=== PATIENT | female | born 1945 | race Two or more races ===

== ENCOUNTER 2024-07-14 13:10 | Outpatient (OUT) | payer MEDICARE, SELFPAY ==
--- NOTE | 2024-07-14 13:27 | FL_ITS ---
The [address] [address] Patient Name: KYREE JIMENEZ MRN: [id number] date: 1945 Sex: F Assigned Patient Location: [place] Current Patient Location: [place] Accession/Order Number: [id number] Exam Date: 07/14/2024 13:35 Report Date: 07/14/2024 16:55 At the request of: FRANCISCA KHAN Procedure: FL modified barium swallow EXAMINATION: FL modified barium swallow HISTORY: Laryngospasm J38.5 COMPARISON: No relevant comparison available. TECHNIQUE: A swallowing evaluation was performed with fluoroscopy in the usual manner. Standard level fluoroscopic mode of operation utilized. FINDINGS: ORAL PHASE: Normal deglutition. PHARYNGEAL PHASE: Normal swallowing. ASPIRATION: None. STRUCTURE: Normal. No visible obstruction, stricture, or dilatation. OTHER: Negative. FL/FL modified barium swallow IMPRESSION: Normal examination. Electronically authenticated by: DELLA NATHAN Date: 07/14/2024 16:55
== END 2024-07-14 13:11 | disposition home or self-care (01) ==
LOC: FL 13:18
PROVIDERS: PCP Family Medicine; Visit Provider Otolaryngology
DX: J38.5 Laryngeal spasm (principal)
CPT/HCPCS: 74230; 92611